=== PATIENT | female | born 1945 | race Caucasian/White ===

== ENCOUNTER 2017-02-11 18:50 | Inpatient (IN) | payer OTHER ==
[~2017-02-11] VITALS: Ht 167.6 cm; Wt 67.6 kg
[2017-02-11 19:03] VITALS: BP 145/65
--- NOTE | 2017-02-11 19:55 | NUR ---
PT BIB EMS FOUND ON THE GROUND AT HOME SINCE 11AM WITH C/O GEN WEAKNESS X 2 DAYS WITH N/V;. PT BDENIES ANY PAIN. AAOX4 AT THIS TIME. EKG DONE. IV 18GA LT A/C DONE BY [facility] WITH NO S/S OF INFULTION AT THIS TIME. FAMILY AT BEDSIDE. SKIN IS INTACT, PALE/WARM/DRY; AAOX4, PERRL, UNSTEADY GAIT S/P W/D; LUNGS CLEAR BL, BREATHING UNLABORED; HR EVEN AND REGULAR, BL PERIPHERAL PULSES PRESENT; BS ACTIVE X4, NO TENDERNESS TO PALPATION. PT DENIES ANY FEVER, CP, SOB, OR COUGH AT THIS TIME; PT STATES 0/10 PAIN AT THIS TIME; PATIENT POSITIONED FOR COMFORT; HOB ELEVATED; BEDRAILS UP X2; BED DOWN.
--- NOTE | 2017-02-11 20:00 | NUR ---
IV 1L NS BOULS STRT-NADR AT THIS TIME
--- NOTE | 2017-02-11 20:15 | NUR ---
LAB AT BEDSIDE, BLOOD AND BLOOD FOR C&S X2 SENT TO LAB.
[2017-02-11 20:19] LABS: BASOPHILS # (AUTO) 0.5 K/uL (0.00-0.22); BASOPHILS % (AUTO) 4.3 % (0.0-2.0); EOSINOPHILS % (AUTO) 0.2 % (0.0-4.0); HEMATOCRIT 38.5 % (36-48); HEMOGLOBIN 12.8 g/dL (12.0-16.0); LYMPHOCYTES # (AUTO) 1.1 K/uL (2.5-16.5); LYMPHOCYTES % (AUTO) 9.1 % (20.5-51.1); MEAN CORPUSCULAR HEMOGLOBIN 27 pg (27-31); MEAN CORPUSCULAR HGB CONC 33 g/dL (33-37); MEAN CORPUSCULAR VOLUME 83 fL (80-94); MONOCYTES # (AUTO) 0.5 K/uL (0.8-1.0); NEUTROPHILS # (AUTO) 9.8 K/uL (1.8-7.7); NEUTROPHILS % (AUTO) 82.4 % (42.2-75.2); PLATELET COUNT (AUTO) 189 K/uL (140-450); RED BLOOD CELL COUNT(AUTO) 4.67 MIL/uL (4.20-5.40); WHITE BLOOD COUNT (AUTO) 11.9 K/uL (4.8-10.8)
[2017-02-11 20:34] LABS: ANION GAP 12.6 (8-16); ASPARTATE AMINOTRANSFERASE 190 U/L (15-37); CARBON DIOXIDE 26.1 mmol/L (21-32); CHLORIDE 103 mmol/L (98-107); CREATININE 1.2 mg/dL (0.6-1.3); GLUCOSE 91 mg/dL (74-106); SODIUM SERUM 139 mmol/L (136-145); TOTAL BILIRUBIN 0.4 mg/dL (0.0-1.0); UREA NITROGEN, BLOOD 13 mg/dL (7-18)
[2017-02-11 20:46] LABS: POTASSIUM 2.7 mmol/L (3.5-5.1)
[2017-02-11] MEDS ORDERED: POTASSIUM CHLORIDE 20% 40 MEQ/15 ML UDC PO ONE (21:00)
[2017-02-11] MEDS ORDERED: NACL 0.9% 1,000 ML IV ONE (21:15)
--- NOTE | 2017-02-11 22:01 | NUR ---
NO ACUTE CHANGES IN CONDITION , PT WITH EYES CLOSED, IN NAD. RESP EVEN AND UNLABORED. VSS 125/45-P-98, 93%ON RA. INFORMED TO TAKE DEEP BREATHS, 97% ON RA. MEDICATED ORDERED.
--- NOTE | 2017-02-11 22:46 | NUR ---
PT AGAIN REMINDED WE NEED URINE SPECIMEN, PLACED ON BEDPAN. DR TEAGUE INFORMED SHE STAYS AT 90%ON RA, AND BP LOW AT 116/47, NO ORDERS RECEIVED. PT REPORTS GENERAL MALAISE AND FEELING SLEEPY.
--- NOTE | 2017-02-11 23:15 | NUR ---
URINE COLLECTED AND SENT TO LAB.
[2017-02-11 23:29] LABS: APPEARANCE,URINE SL CLOUDY (CLEAR); BILIRUBIN,URINE 1+ (NEGATIVE); BLOOD, URINE 3+ (NEGATIVE); COLOR,URINE YELLOW (YELLOW); LEUKOCYTE ESTERASE ,URINE NEGATIVE (NEGATIVE); NITRITE, URINE NEGATIVE (NEGATIVE); UGLUCOSE NEGATIVE (NEGATIVE)
[2017-02-11 23:58] LABS: RBC,URINE TOO NUMEROUS TO COUN /HPF (0-5); WBC,URINE TOO MANY TO COUNT /HPF (0-5)
[2017-02-12] MEDS ORDERED: KCL 20 MEQ/WATER INJ PREMIX 200 ML IV ONE (00:35)
[2017-02-12] MEDS ORDERED: MORPHINE SULFATE 2 MG/ML SYR IVP PRN (00:35)
[2017-02-12] MEDS ORDERED: ONDANSETRON 4 MG/2 ML VIAL IVP PRN (00:35)
--- NOTE | 2017-02-12 01:04 | NUR ---
REPORT RECEIVED FROM DESIRE BONNER CHARGE NURSE.
--- NOTE | 2017-02-12 01:13 | NUR ---
POTASSIUM 20 MEQ NOT GIVEN D/T NOT AVAILABLE IN ER.
[2017-02-12 01:25] VITALS: BP 115/54
--- NOTE | 2017-02-12 01:25 | NUR ---
PATIENT ADMITTED TO THE UNIT FROM ER. PATIENT ARRIVED VIA GURNEY. PATIENT IS AWAKE, ALERT AND ORIENTED. NO SIGNS AND SYMPTOMS OF DISTRESS NOTED. PATIENT ON O2 2L VIA NC. IV SITE NOTED ON LEFT HAND, ASYMPTOMATIC, INTACT AND PATENT. PLAN OF CARE DISCUSSED WITH PATIENT. PATIENT VERBALIZED UNDERSTANDING. BED IN LOWEST POSITION, SIDE RAILS UP AND CALL LIGHT WITHIN REACH. WILL CONTINUE TO MONITOR.
--- NOTE | 2017-02-12 01:35 | NUR ---
Patient will be admitted to [facility]. Admited to Med/Surg. Will go to room 114. Belongings list completed. Report to
[2017-02-12] MEDS: NACL 0.9% 1,000 ML IV SCH ×3 (02:30→16:45)
[2017-02-12] MEDS: ACETAMINOPHEN 325 MG TAB PO PRN ×2 (02:40→16:45)
--- NOTE | 2017-02-12 03:30 | NUR ---
CHECKED ON PATIENT. PATIENT IS ASLEEP. NO SIGNS AND SYMPTOMS OF DISTRESS NOTED. BED IN LOWEST POSITION, SIDE RAILS UP AND CALL LIGHT WITHIN REACH. WILL CONTINUE TO MONITOR.
[2017-02-12] MEDS ORDERED: POTASSIUM CHLORIDE 40 MEQ in NACL 0.9% 250 ML IV SCH (03:35)
[2017-02-12 04:00] VITALS: BP 110/58
--- NOTE | 2017-02-12 05:00 | NUR ---
CHECKED ON PATIENT. PATIENT IS ASLEEP. NO SIGNS AND SYMPTOMS OF DISTRESS NOTED. BREATHING EVEN AND UNLABORED. BED IN LOWEST POSITION, SIDE RAILS UP AND CALL LIGHT WITHIN REACH WILL CONTINUE TO MONITOR.
[2017-02-12 06:49] LABS: BASOPHILS % (AUTO) 0.3 % (0.0-2.0); EOSINOPHILS # (AUTO) 0.1 K/uL (0-0.4); EOSINOPHILS % (AUTO) 0.6 % (0.0-4.0); HEMATOCRIT 33.9 % (36-48); LYMPHOCYTES # (AUTO) 1.4 K/uL (2.5-16.5); LYMPHOCYTES % (AUTO) 13.3 % (20.5-51.1); MEAN CORPUSCULAR HEMOGLOBIN 27 pg (27-31); MEAN CORPUSCULAR HGB CONC 32 g/dL (33-37); MEAN CORPUSCULAR VOLUME 85 fL (80-94); MONOCYTES # (AUTO) 0.9 K/uL (0.8-1.0); MONOCYTES % (AUTO) 8.5 % (1.7-9.3); NEUTROPHILS # (AUTO) 8.2 K/uL (1.8-7.7); NEUTROPHILS % (AUTO) 77.3 % (42.2-75.2); PLATELET COUNT (AUTO) 171 K/uL (140-450); RED BLOOD CELL COUNT(AUTO) 4.02 MIL/uL (4.20-5.40); RED CELL DISTRIBUTION WIDTH 16.1 % (11.6-13.7); WHITE BLOOD COUNT (AUTO) 10.6 K/uL (4.8-10.8)
[2017-02-12 07:00] LABS: ALBUMIN 2.4 g/dL (3.4-5.0); ANION GAP 11.2 (8-16); ASPARTATE AMINOTRANSFERASE 186 U/L (15-37); CARBON DIOXIDE 24.6 mmol/L (21-32); CHLORIDE 108 mmol/L (98-107); CREATININE 1.3 mg/dL (0.6-1.3); GLUCOSE 79 mg/dL (74-106); MAGNESIUM 1.7 mg/dL (1.8-2.4); PHOSPHORUS 4.6 mg/dL (2.5-4.9); POTASSIUM 3.8 mmol/L (3.5-5.1); SODIUM SERUM 140 mmol/L (136-145); TOTAL BILIRUBIN 0.3 mg/dL (0.0-1.0); UREA NITROGEN, BLOOD 17 mg/dL (7-18)
--- NOTE | 2017-02-12 07:19 | NUR ---
PATIENT REPORT GIVEN TO MORNING NURSE AT BEDSIDE. PATIENT IS IN STABLE CONDITION
--- NOTE | 2017-02-12 07:30 | NUR ---
RECEIVED BEDSIDE REPORT FROM WAVE SOLDER OFFBEARER NURSE. PATIENT IS AWAKE, ALERT AND ORIENTEDX4. NO SIGNS AND SYMPTOMS OF DISTRESS NOTED. PATIENT ON O2 2L VIA NC. IV SITE NOTED ON LEFT HAND, 22G, ASYMPTOMATIC, INTACT AND PATENT. PLAN OF CARE DISCUSSED WITH PATIENT. PATIENT VERBALIZED UNDERSTANDING. BED IN LOWEST POSITION, SIDE RAILS UP AND CALL LIGHT WITHIN REACH. WILL CONTINUE TO MONITOR.
[2017-02-12 08:00] VITALS: BP 129/56
[2017-02-12] MEDS ORDERED: metroNIDAZOLE 500 MG/NS PREMIX 100 ML IV SCH (08:35)
[2017-02-12] MEDS ORDERED: metroNIDAZOLE 500 MG/NS PREMIX 100 ML IV ONE (09:00)
--- NOTE | 2017-02-12 09:14 | NUR ---
PATIENT HAS BEEN SCREENED AND CATEGORIZED MODERATE NUTRITION RISK. PATIENT WILL BE SEEN WITHIN 3-5 DAYS OF ADMISSION. 02/14/17-02/16/[address]
--- NOTE | 2017-02-12 10:00 | NUR ---
PT HAD DIARRHEA X1. STOOL SAMPLE COLLECTED.
[2017-02-12] MEDS: ENOXAPARIN 40 MG/0.4 ML SYR SUBQ SCH (10:03)
--- NOTE | 2017-02-12 10:35 | NUR ---
PT WALKED WITH PT WITH A WALKER. O2 SAT BEFORE WALKING 96% ON RM AIR. AFTER WALKING 87% ON RM AIR. PUT O2 2L VIA NC BACK ON.
--- NOTE | 2017-02-12 10:56 | NUR ---
CM NOTE PER BALANCE RECESSER KEZIA, REVIEWS SHOULD ONLY BE SENT TO [facility]. INITIAL REVIEW FAXED TO [facility] [phone] DARCIE # [phone].
[2017-02-12] MEDS: metroNIDAZOLE 500 MG/NS PREMIX 100 ML IV SCH ×2 (14:48→20:41)
--- NOTE | 2017-02-12 15:30 | NUR ---
LAB CALLED SAYING STOOL IS ONLY ENOUGH FOR WBC AND C-DIFF. WILL COLLECT MORE STOOL IF PT HAS MORE DIARRHEA.
[2017-02-12 16:00] VITALS: BP 128/60
--- NOTE | 2017-02-12 16:00 | NUR ---
PT TEMP ELEVATED TO 100.4, WILL ADMINISTER TYLENOL
--- NOTE | 2017-02-12 17:00 | NUR ---
TEMP 100.4, PT C/O OF CHILLS REPORTED TO DR COTO. DR COTO STATED GIVING TYLENOL AND WAITING OF CT SCAN AND STOOL AND URINE RESULT.
[2017-02-12 18:26] LABS: APPEARANCE,URINE CLEAR (CLEAR); BILIRUBIN,URINE 2+ (NEGATIVE); BLOOD, URINE 2+ (NEGATIVE); COLOR,URINE YELLOW (YELLOW); LEUKOCYTE ESTERASE ,URINE NEGATIVE (NEGATIVE); NITRITE, URINE NEGATIVE (NEGATIVE); PH,URINE 5.5 (5.0-9.0); UGLUCOSE NEGATIVE (NEGATIVE)
[2017-02-12 18:52] LABS: RBC,URINE 80-100 /HPF (0-5); WBC,URINE 20-60 /HPF (0-5)
--- NOTE | 2017-02-12 19:35 | NUR ---
PATIENT REPORT GIVEN TO SERVICE DESK TEAM LEAD NURSE AT BEDSIDE. PATIENT IS IN STABLE CONDITION. TEMP 98.6.
--- NOTE | 2017-02-12 19:36 | NUR ---
PATIENT REPORT RECEIVED FROM MORNING NURSE. PATIENT AWAKE, ALERT, AND ORIENTED. PATIENT'S IS AT BEDSIDE. NO SIGNS AND SYMPTOMS OF DISTRESS NOTED, NO COMPLAINTS OF PAIN AT THIS TIME. PATIENT IS ON O2 2L NC. IV SITE NOTED ON LEFT HAND, IV SITE ASYMPTOMATIC, INTACT AND PATENT. PLAN OF CARED DISCUSSED WITH PATIENT. PATIENT VERBALIZED UNDERSTANDING. BED IN LOWEST POSITION, SIDE RAILS UP AND CALL LIGHT WITHIN REACH. WILL CONTINUE TO MONITOR.
[2017-02-12] MEDS ORDERED: INFLUENZA VIRUS VACCINE QUAD 0.5 ML SYR IMVAC PRN (23:20)
[2017-02-12] MEDS ORDERED: PNEUMOCOCCAL VACCINE 23 MCG/0.5 ML VIAL IMVAC PRN (23:20)
[2017-02-13] VITALS: BP 123/59
[2017-02-13] MEDS: metroNIDAZOLE 500 MG/NS PREMIX 100 ML IV SCH (05:03)
[2017-02-13] MEDS: NACL 0.9% 1,000 ML IV SCH (05:48)
--- NOTE | 2017-02-13 07:29 | NUR ---
PATIENT REPORT GIVEN TO MORNING NURSE. PATIENT IS IN STABLE CONDITION
--- NOTE | 2017-02-13 07:30 | NUR ---
RECEIVED PT IN BED. AWAKE. ALERT ORIENTED X4. NO SOB NOTED. DENIES ANY PAIN OR DISCOMFORT AT THIS TIME. PT ON BEDREST. SAFETY PRECAUTION IN PLACE. CALL LIGHT WITHIN REACH.
[2017-02-13 08:00] VITALS: BP 164/68
--- NOTE | 2017-02-13 08:19 | NUR ---
DR. COTO CAME TO SEE PT AND MADE AWARE OF LATEST RECORDED VITAL SIGNS.
[2017-02-13] MEDS ORDERED: ACET-1182 PO (08:55)
[2017-02-13] MEDS ORDERED: SULF-59 PO (08:55)
[2017-02-13] MEDS: ENOXAPARIN 40 MG/0.4 ML SYR SUBQ SCH (09:01)
--- NOTE | 2017-02-13 11:53 | NUR ---
GRANDDAUGHTER TITO AT BEDSIDE. DISCHARGE INSTRUCTIONS AND PT TEACHING EXPLAINED TO PT. PT VERBALIZED UNDERSTANDING. REMINDED TO FOLLOW UP WITH PCP WITHIN 7 DAYS. FLU VACCINE AND PNA VACCINE GIVEN IM. TOLERATED WELL. IV CANNULA REMOVED AND INTACT. NO SOB NOTED. DENIES ANY PAIN OR DISCOMFORT AT THIS TIME. PHYSICAL THERAPIST CAME TO SEE PT. Addendum: 02/13/17 at 1212 by Alicia Chavez RN PT SIGNED DISCHARGE PAPERS. VERBALIZED UNDERSTANDING OF THE HEALTH TEACHINGS AND INSTRUCTIONS.
[2017-02-13 11:55] VITALS: BP 130/60
--- NOTE | 2017-02-13 12:00 | NUR ---
PHYSICAL THERAPIST CAME BACK WITH PT. NO SOB NOTED. DENIES ANY PAIN OR DISCOMFORT AT THIS TIME.
--- NOTE | 2017-02-13 12:20 | NUR ---
PT WHEELED ASSISTED BY ERICK GOING TO THE HOSPITAL PARKING LOT WITH GRANDDAUGHTER TITO TO THEIR PRIVATE VEHICLE. NO SOB NOTED. DENIES ANY PAIN OR DISCOMFORT AT THIS TIME. NAME ARMBAND REMOVED. PT DISCHARGED ON STABLE CONDITION.
== END 2017-02-13 12:20 | disposition home or self-care (01) | DRG 392 ==
LOC: MED 18:50 → MTU 02-12 00:36
PROVIDERS: ADMIT Hospitalist; ATTEND Hospitalist
PROC: 3E0234Z Introduction of Serum, Toxoid and Vaccine into Muscle, Percutaneous Approach (ICD-10-PCS; principal; 2017-02-12)
PROC: 3E0234Z Introduction of Serum, Toxoid and Vaccine into Muscle, Percutaneous Approach (ICD-10-PCS; 2017-02-12)
DX: K52.9 Noninfective gastroenteritis and colitis, unspecified (principal); E44.1 Mild protein-calorie malnutrition; E87.6 Hypokalemia; Z68.24 Body mass index [BMI] 24.0-24.9, adult; Z23 Encounter for immunization
CPT/HCPCS: 36415; 71010; 71250; 80053; 81001; 83605; 83735; 84100; 85025; 87040; 87070; 87081; 87086; 89055; 90658; 90732; 97110; 97116; 97530; 99285; J1650; J3480; J3490; J7030; Q0092

== ENCOUNTER 2017-09-22 21:05 | Emergency (ER) | payer OTHER ==
[~2017-09-22] VITALS: Ht 154.9 cm; Wt 78.0 kg
[~2017-09-22 21:05] MED LIST: ACET-1182 PO; SULF-59 PO
[2017-09-22 21:18] VITALS: BP 186/81
--- NOTE | 2017-09-22 21:18 | NUR ---
PATIENT TRIAGED; VSS; SENT TO ER LOBBY.
--- NOTE | 2017-09-22 23:06 | NUR ---
PT TAKEN TO BED 8
--- NOTE | 2017-09-22 23:06 | NUR ---
PT STATES WALKING OUT OF [facility] IN PARKING LOT AND TRIPPED OVER SPEEDBUM CAUSEING 2.5" LAC TO RIGHT KNEE. 07/25 PAIN. BLEEDING CONTROLLED. VSS. ER MD AWARE. CONTINUE TO MONITOR.
--- NOTE | 2017-09-22 23:08 | NUR ---
PER RN YUDITH ORDER, PT BANDAGE REAPPLIED DUE TO HEAVY SATURATION, BLEEDING CONTROLLED. GAUZE APPLIED OVER WOUND AND HELD IN PLACE WITH CLOTH TAPE. +DISTAL CSM
--- NOTE | 2017-09-22 23:15 | NUR ---
XYLOCAIN 15 50MG/5ML; X2 VAILS TAKEN FROM [facility].
--- NOTE | 2017-09-22 23:15 | NUR ---
XYLOCAINE ADMINISTERED BY DR GAO.
[2017-09-23] MEDS ORDERED: BACITRACIN OINT 500 UNITS/GM PKT TP ONE (00:50)
--- NOTE | 2017-09-23 00:57 | NUR ---
Patient noted to have existing wounds upon arrival to ER. Wound covered with dressing. Physician informed. BY ER MD DR GAO
[2017-09-23 01:06] VITALS: BP 157/79
--- NOTE | 2017-09-23 01:08 | NUR ---
Patient discharged with v/s stable. Written and verbal after care instructions given and explained. Patient alert, oriented and verbalized understanding of instructions. Ambulatory with steady gait. All questions addressed prior to discharge. ID band removed. Patient advised to follow up with PMD. NO Rx of given. Patient educated on indication of medication including possible reaction and side effects. Opportunity to ask questions provided and answered.
[2017-09-23] MEDS ORDERED: LIDOCAINE 2% 1000 MG/50 ML VIAL INJ ONE (01:30)
[2017-09-23] MEDS ORDERED: LIDOCAINE MPF 1% - 5 mL VIAL 10 ML ONE (01:40)
== END 2017-09-23 01:08 | disposition home or self-care (01) ==
LOC: MED 21:05
DX: S81.011A Laceration without foreign body, right knee, initial encounter (principal); Z79.1 Long term (current) use of non-steroidal anti-inflammatories (NSAID); W01.0XXA Fall on same level from slipping, tripping and stumbling without subsequent striking against object, initial encounter; Y93.89 Activity, other specified; Y92.89 Other specified places as the place of occurrence of the external cause; Y99.8 Other external cause status
CPT/HCPCS: 12001; 99283; J2001

== ENCOUNTER 2017-09-30 07:17 | Emergency (ER) | payer OTHER ==
[~2017-09-30] VITALS: Ht 157.5 cm; Wt 72.1 kg
[2017-09-30 07:22] VITALS: BP 143/88
--- NOTE | 2017-09-30 07:27 | NUR ---
PT AMBULATED TO ER BED 02
--- NOTE | 2017-09-30 07:30 | NUR ---
72/F PRESENT TO ER C/O SUTURE REMOVAL ON RIGHT KNEE. wound c/d/i. PATIENT STATES PAIN OF 0/10 AT THIS TIME. PATIENT POSITIONED FOR COMFORT; HOB ELEVATED; BEDRAILS UP X2; BED DOWN. ER MD MADE AWARE OF PT STATUS.
--- NOTE | 2017-09-30 07:44 | NUR ---
Patient being evaluated by DR WARREN at bedside. Addendum: 09/30/17 at 0744 by MED1 NO REMOVE SUTURE AT THIS TIME.
--- NOTE | 2017-09-30 07:58 | NUR ---
Patient discharged with v/s stable. Written and verbal after care instructions given and explained. Patient verbalized understanding. Ambulatory with steady gait. All questions addressed prior to discharge. Advised to follow up with PMD.
[2017-09-30 08:16] VITALS: BP 143/88
== END 2017-09-30 07:58 | disposition home or self-care (01) ==
LOC: MED 07:17
DX: S81.011D Laceration without foreign body, right knee, subsequent encounter (principal); W01.10XD Fall on same level from slipping, tripping and stumbling with subsequent striking against unspecified object, subsequent encounter; Z79.1 Long term (current) use of non-steroidal anti-inflammatories (NSAID)
CPT/HCPCS: 99281

== ENCOUNTER 2019-04-13 13:50 | Observation (INO) | payer OTHER ==
[~2019-04-13] VITALS: Ht 157.5 cm; Wt 70.8 kg
--- NOTE | 2019-04-13 13:50 | NUR ---
Patient BIBA ALS, transferred to bed 11. RN evaluating patient at bedside.
[2019-04-13 13:57] VITALS: BP 164/77
--- NOTE | 2019-04-13 14:00 | NUR ---
BIBA FROM HOME C/O PRESSURE-LIKE STERNAL CHEST PAIN RADIATING TO POSTERIOR NECK AND SOB X 30 MINS ASPHALT HEATER OPERATOR. PT DENIES ANY FEVER, CP, OR COUGH AT THIS TIME; PATIENT STATES PAIN OF 9/10 AT THIS TIME; VSS; PATIENT POSITIONED FOR COMFORT; HOB ELEVATED; BEDRAILS UP X1; BED DOWN. ER MD MADE AWARE OF PT STATUS. FAMILY MEMBERS ARE AT BEDSIDE.
[2019-04-13] MEDS ORDERED: NACL 0.9% 1,000 ML IV ONE (14:39)
[2019-04-13] MEDS ORDERED: MORPHINE SULFATE 4 MG/ML SYR IVP ONE (14:40)
[2019-04-13] MEDS ORDERED: AMPICILLIN/SULBACTAM 3 GM in NACL 0.9% 100 ML IV ONE (14:40)
--- NOTE | 2019-04-13 15:00 | NUR ---
PT IS NOT ABLE TO GIVE SPUTUM AT THIS TIME. RT PETER NOTIFED FOR SPUTUM COLLECTION OF SPUTUM NEEDED.
[2019-04-13] MEDS ORDERED: AMPICILLIN/SULBACTAM 3 GM VIAL ONE (15:06)
[2019-04-13 15:49] LABS: ALBUMIN 2.7 g/dL (3.4-5.0); ANION GAP 11.4 (8-16); ASPARTATE AMINOTRANSFERASE 19 U/L (15-37); CARBON DIOXIDE 25.1 mmol/L (21-32); CHLORIDE 100 mmol/L (98-107); CREATININE 0.9 mg/dL (0.6-1.3); GLUCOSE 106 mg/dL (74-106); POTASSIUM 3.5 mmol/L (3.5-5.1); SODIUM SERUM 133 mmol/L (136-145); TOTAL BILIRUBIN 0.3 mg/dL (0.0-1.0); UREA NITROGEN, BLOOD 15 mg/dL (7-18)
--- NOTE | 2019-04-13 16:25 | NUR ---
PT TAKEN FROM CT SCAN VIA [facility].
[2019-04-13 16:45] LABS: BASOPHILS % (AUTO) 0.5 % (0.0-2.0); EOSINOPHILS # (AUTO) 0.1 K/uL (0-0.4); EOSINOPHILS % (AUTO) 0.7 % (0.0-4.0); HEMATOCRIT 29.3 % (36-48); HEMOGLOBIN 10.1 g/dL (12.0-16.0); LYMPHOCYTES # (AUTO) 1.1 K/uL (2.5-16.5); LYMPHOCYTES % (AUTO) 12.1 % (20.5-51.1); MEAN CORPUSCULAR HEMOGLOBIN 27 pg (27-31); MEAN CORPUSCULAR HGB CONC 35 g/dL (33-37); MEAN CORPUSCULAR VOLUME 76.4 fL (80-94); MONOCYTES % (AUTO) 10.2 % (1.7-9.3); NEUTROPHILS # (AUTO) 7.3 K/uL (1.8-7.7); NEUTROPHILS % (AUTO) 76.5 % (42.2-75.2); PLATELET COUNT (AUTO) 259 K/uL (140-450); RED BLOOD CELL COUNT(AUTO) 3.83 MIL/uL (4.20-5.40); RED CELL DISTRIBUTION WIDTH 17.6 % (11.6-13.7); WHITE BLOOD COUNT (AUTO) 9.5 K/uL (4.8-10.8)
[2019-04-13 16:52] LABS: APPEARANCE,URINE CLEAR (CLEAR); BILIRUBIN,URINE NEGATIVE (NEGATIVE); BLOOD, URINE NEGATIVE (NEGATIVE); COLOR,URINE YELLOW (YELLOW); LEUKOCYTE ESTERASE ,URINE NEGATIVE (NEGATIVE); NITRITE, URINE NEGATIVE (NEGATIVE); UGLUCOSE NEGATIVE (NEGATIVE)
--- NOTE | 2019-04-13 17:05 | NUR ---
PT IS RESTING IN BED WITH VSS. PT IS ON MONITOR.
[2019-04-13] MEDS ORDERED: GABA100C PO (18:23)
[2019-04-13] MEDS ORDERED: MELO-176 PO (18:23)
[2019-04-13] MEDS ORDERED: LORazepam 2 MG/ML VIAL IVP PRN (18:55)
[2019-04-13] MEDS ORDERED: ALBUTEROL 0.083% 2.5 MG/3 ML NEBU INH PRN (18:55)
[2019-04-13] MEDS ORDERED: ACETAMINOPHEN 325 MG TAB PO PRN (18:55)
[2019-04-13] MEDS ORDERED: HYDROcodone/APAP 5/325 MG 1 TAB TAB PO PRN (18:55)
[2019-04-13] MEDS ORDERED: ONDANSETRON 4 MG/2 ML VIAL IVP PRN (18:55)
[2019-04-13] MEDS ORDERED: VANCOMYCIN PER PHARMACY MC PRN (19:00)
--- NOTE | 2019-04-13 19:20 | NUR ---
REPORT GIVEN TO DESIRE KELLER. TRANSFER OF CARE AT THIS TIME.
--- NOTE | 2019-04-13 19:22 | NUR ---
Marlon eddy in [facility] - 04/13/19 at 1928 by NOÉ RECEIVED REPORT DESIRE WAGNER AND ASSUMED CARE.
--- NOTE | 2019-04-13 19:45 | NUR ---
ADMITTED 73 YEARS OLD FEMALE FROM ER/HOME VIA [facility], CC: CP, GEN. WEAKNESS. DX: VENOUS INSUFF. SEE NURSING ADMISSION ASSESSMENT AND HISTORY. ORIENTED TO ROOM AND UNIT ROUTINES. CALL LIGHT WITHIN REACH. VITAL SIGNS STABLE. AFEBRILE.
--- NOTE | 2019-04-13 19:53 | NUR ---
Patient will be admitted to care of DR COTO. Admited to [facility]. Will go to room 101A. Belongings list completed. Report to DESIRE PETERSEN.
[2019-04-13] MEDS ORDERED: VANCOMYCIN 1GM/DEXT 5% PREMIX 200 ML IV SCH (20:15)
[2019-04-13] MEDS ORDERED: BUMETANIDE 1 MG/4 ML VIAL IV SCH (21:00)
[2019-04-13] MEDS ORDERED: VANCOMYCIN 1,000 MG VIAL ONE (21:16)
--- NOTE | 2019-04-13 22:00 | NUR ---
ASLEEP, EASILY AROUSABLE. REPOSITIONED. DUE MEDS GIVEN. CALL LIGHT WITHIN REACH.
--- NOTE | 2019-04-14 | NUR ---
T-100.5, TYLENOL GIVEN PLUS COOLING MEASURES. CALL LIGHT WITHIN REACH.
[2019-04-14 01:41] VITALS: BP 135/61
--- NOTE | 2019-04-14 02:00 | NUR ---
PERICARE DONE, REPOSITIONED BY HOG COUNTER. CALL LIGHT WITHIN REACH.
--- NOTE | 2019-04-14 04:00 | NUR ---
AFEBRILE. VITAL SIGNS STABLE. NO COMPLAINS. PERICARE DONE BY HOUSEHOLD APPLIANCE INSTALLER. REPOSITIONED. CALL LIGHT WITHIN REACH.
[2019-04-14 04:57] VITALS: BP 137/57
--- NOTE | 2019-04-14 06:56 | NUR ---
SLEEPING WELL, EASILY AROUSABLE. NO COMPLAINS. CALL LIGHT WITHIN REACH.
[2019-04-14 07:07] LABS: BASOPHILS # (AUTO) 0.1 K/uL (0.00-0.22); BASOPHILS % (AUTO) 0.6 % (0.0-2.0); EOSINOPHILS # (AUTO) 0.1 K/uL (0-0.4); EOSINOPHILS % (AUTO) 1.4 % (0.0-4.0); HEMATOCRIT 27.8 % (36-48); HEMOGLOBIN 9.6 g/dL (12.0-16.0); LYMPHOCYTES % (AUTO) 10.4 % (20.5-51.1); MEAN CORPUSCULAR HEMOGLOBIN 27 pg (27-31); MEAN CORPUSCULAR HGB CONC 35 g/dL (33-37); MEAN CORPUSCULAR VOLUME 76.8 fL (80-94); MONOCYTES # (AUTO) 0.9 K/uL (0.8-1.0); NEUTROPHILS # (AUTO) 7.5 K/uL (1.8-7.7); NEUTROPHILS % (AUTO) 78.6 % (42.2-75.2); PLATELET COUNT (AUTO) 257 K/uL (140-450); RED BLOOD CELL COUNT(AUTO) 3.62 MIL/uL (4.20-5.40); RED CELL DISTRIBUTION WIDTH 17.8 % (11.6-13.7); WHITE BLOOD COUNT (AUTO) 9.6 K/uL (4.8-10.8)
--- NOTE | 2019-04-14 07:15 | NUR ---
RECEIVED BEDSIDE REPORT FROM CRUSHING FOREMAN NURSE TRINITY. PT IS ASLEEP, NO S/S OF DISTRESS NOTED. SKIN INTACT ASIDE FROM SKIN PEELING ON THE BLE'S. PT IS CURRENTLY ON 3L O2 NC. IV SITE L AC 20 G, SALINE LOCKED. FALL PRECAUTIONS IN PLACE. CALL LIGHT IS WITHIN REACH. PT IS AN OBSERVATION PT. WILL CONTINUE TO MONITOR.
--- NOTE | 2019-04-14 07:23 | NUR ---
ENDORSED CARE AT BEDSIDE WITH MILLICENT PHIPPS, PATIENT IN STABLE CONDITION.
[2019-04-14 07:46] LABS: ALBUMIN 2.2 g/dL (3.4-5.0); ANION GAP 14.4 (8-16); ASPARTATE AMINOTRANSFERASE 31 U/L (15-37); CARBON DIOXIDE 22.9 mmol/L (21-32); CHLORIDE 101 mmol/L (98-107); CREATININE 0.9 mg/dL (0.6-1.3); GLUCOSE 77 mg/dL (74-106); POTASSIUM 3.3 mmol/L (3.5-5.1); SODIUM SERUM 135 mmol/L (136-145); TOTAL BILIRUBIN 0.4 mg/dL (0.0-1.0); UREA NITROGEN, BLOOD 12 mg/dL (7-18)
[2019-04-14 08:00] VITALS: BP 121/55
--- NOTE | 2019-04-14 08:00 | NUR ---
PT SEEN BY DR COTO
--- NOTE | 2019-04-14 08:12 | NUR ---
PATIENT HAS BEEN SCREENED AND CATEGORIZED MODERATE NUTRITION RISK. PATIENT WILL BE SEEN WITHIN 3-5 DAYS OF ADMISSION. 04/16/19 04/18/[address]
[2019-04-14] MEDS ORDERED: MAG SULF 2000 MG/WATER PREMIX 50 ML IV PRN (08:35)
[2019-04-14] MEDS ORDERED: KCL 20 MEQ/WATER INJ PREMIX 200 ML IV PRN (08:35)
[2019-04-14] MEDS ORDERED: GABAPENTIN 100 MG CAP PO SCH (09:00)
[2019-04-14] MEDS: FUROSEMIDE 40 MG/4 ML VIAL IVP SCH ×2 (09:12→16:37)
--- NOTE | 2019-04-14 09:20 | NUR ---
AM MEDS ADMINISTERED, PT TOLERATED WELL. PRN K-RIDER 20 MEQ IVF GIVEN FOR POTASSIUM OF 3.3. IS AT BEDSIDE.
--- NOTE | 2019-04-14 09:29 | NUR ---
PT IS HAVING AN ECHO AT THIS TIME.
--- NOTE | 2019-04-14 09:34 | NUR ---
CALLED LAB TO COME DRAW PT'S TROPONIN STAT, PER DR COTO'S ORDER. Addendum: 04/14/19 at 1156 by Gloria Oh RN TROPONIN NEGATIVE
[2019-04-14] MEDS: HYDROcodone/APAP 5/325 MG 1 TAB TAB PO PRN ×2 (10:35→16:37)
--- NOTE | 2019-04-14 11:56 | NUR ---
PT'S TWO DAUGHTERS ARE VISITING AT BEDSIDE. PT IN NO ACUTE DISTRESS. VITAL SIGNS ARE STABLE.
[2019-04-14 12:00] VITALS: BP 118/55
--- NOTE | 2019-04-14 12:54 | NUR ---
PT EATING LUNCH WITH ASSISTANCE FROM GRANDDAUGHTER. K-RIDER HAS FINISHED INFUSING.
--- NOTE | 2019-04-14 14:33 | NUR ---
PT WORKING WITH PHYSICAL THERAPIST AT THIS TIME
[2019-04-14 16:00] VITALS: BP 131/59
--- NOTE | 2019-04-14 16:38 | NUR ---
DISCHARGE PLANNING 73 y/o female admitted under observation for venous insufficiency. Received order for services for PT and safety eval. Sw met with pt and at the bedside. Pt reported she lives at home with . Pt uses a walker at home and stated that prior to this episode of sickness she was fully independent. stated he's been helping pt with ADLs for the last 4-5 days. Pt reported she's never been to a SNF and she would prefer to go home with her family. Sw contacted [facility] [phone] ext [phone] who requested to have the order and face sheet faxed to [phone]. Orders faxed; possible DC Wednesday. After hours number is [phone]. DARIAN Mcdonald/TONI Ext [phone] Addendum: 04/15/19 at 1056 by Ervin Arias SW followed up with [facility] TONI [place] [phone]. Per Valencia, taxation economist staff will contact to follow up on Home Health for PT for patient. Valencia provided reference number #[id number] and stated that would call SW back shortly. KAITLYN will continue to follow up. Addendum: 04/15/19 at 1101 by Ervin Arias KAITLYN received phone call from TONI Em from [facility]. Maria Antonia stated that fax was received and she will call back with authorization number after information is reviewed. KAITLYN will continue to follow up. Addendum: 04/15/19 at 1246 by Ervin Arias KAITLYN received phone call from [facility] TONI Lozano stated that she had arranged home health with [facility] [phone]. Marta stated that the [facility] will reach out to patient after discharge. No further needs identified.
--- NOTE | 2019-04-14 16:50 | NUR ---
SCHEDULED IVP LASIX ADMINISTERED, ALSO ADMINISTERED A PAIN PILL FOR ARTHRITIS PAIN IN THE HANDS. WILL REASSESS WITHIN AN HOUR. IS SITTING AT BEDSIDE.
[2019-04-14] MEDS ORDERED: PANT40EC PO (17:49)
--- NOTE | 2019-04-14 17:53 | NUR ---
PAGED DR MARY JOSEPH TO NOTIFY HIM OF CONSULT ORDERED FOR THE PT, AND TO NOTIFY HIM THAT PT CAN BE DC'D (PER DR COTO) WHEN CLEARED BY CARDIOLOGY. AWAITING CALL BACK. Addendum: 04/14/19 at 1813 by Gloria Oh RN PT'S FAMILY STATES THAT THEY WANT PT TO STAY IN THE HOSPITAL ONE MORE NIGHT. FAMILY STATES THAT THEY TALKED TO STAFF (NOT CLEAR WHICH STAFF) ABOUT ALLOWING PT TO STAY IN THE HOSPITAL ANOTHER NIGHT. WILL MENTION THIS TO DR JOSEPH WHEN HE CONSULTS THE PT. Addendum: 04/14/19 at 1841 by Gloria Oh RN DR JOSEPH CALLED BACK, SAID HE WILL BE COMING IN TONIGHT TO CONSULT PT.
[2019-04-14] MEDS: PANTOPRAZOLE 40 MG TABEC PO SCH (18:02)
--- NOTE | 2019-04-14 19:27 | NUR ---
PT ENDORSED TO REFINISHER NURSE IN STABLE CONDITION
--- NOTE | 2019-04-14 19:28 | NUR ---
RECEIVED REPORT FROM AM SHIFT. PATIENT LYING DOWN IN BED, NO DISTRESS NOTED. FAMILY MEMBERS AT BEDSIDE. PAIN WITHIN TOLERABLE AT THIS TIME. IV SITE INTACT, PATENT, AND INFUSING IVF PER MD ORDERS. RESPIRATIONS EVEN, UNLABORED, ON ROOM O2 2L/MIN. AAOX4, CALM, COOPERATIVE, SKIN COLOR APPROPRIATE TO ETHNICITY, WARM TO TOUCH. BLE REDNESS NOTED, WITH DRY FLAKY SKIN. REVIEWED PLAN OF CARE WITH PATIENT. PATIENT VERBALIZED UNDERSTANDING. SAFETY MEASURES IN PLACE, CALL LIGHT WITHIN REACH. WILL CONTINUE TO MONITOR.
[2019-04-14 20:00] VITALS: BP 132/58
--- NOTE | 2019-04-14 20:07 | NUR ---
DR. JOSEPH AT BEDSIDE REVIEWING PLAN OF CARE WITH PATIENT. WILL CONTINUE TO MONITOR.
--- NOTE | 2019-04-14 21:28 | NUR ---
PATIENT LYING DOWN IN BED SLEEPING, AROUSABLE BY VOICE. NO DISTRESS NOTED. DENIES ANY PAIN. SCHEDULED MEDICATIONS DUE GIVEN. WILL CONTINUE TO MONITOR.
[2019-04-15] VITALS: BP 118/57
--- NOTE | 2019-04-15 02:00 | NUR ---
PATIENT LYING DOWN IN BED SLEEPING, AROUSABLE BY VOICE. NO DISTRESS NOTED. DENIES ANY PAIN. WILL CONTINUE TO MONITOR.
[2019-04-15 04:00] VITALS: BP 138/57
--- NOTE | 2019-04-15 04:50 | NUR ---
PATIENT LYING DOWN IN BED SLEEPING, AROUSABLE BY VOICE. NO DISTRESS NOTED. WILL CONTINUE TO MONITOR.
[2019-04-15 06:06] LABS: BASOPHILS % (AUTO) 0.4 % (0.0-2.0); EOSINOPHILS # (AUTO) 0.2 K/uL (0-0.4); EOSINOPHILS % (AUTO) 2.2 % (0.0-4.0); HEMATOCRIT 28.2 % (36-48); HEMOGLOBIN 9.8 g/dL (12.0-16.0); LYMPHOCYTES % (AUTO) 12.1 % (20.5-51.1); MEAN CORPUSCULAR HEMOGLOBIN 27 pg (27-31); MEAN CORPUSCULAR HGB CONC 35 g/dL (33-37); MEAN CORPUSCULAR VOLUME 76.3 fL (80-94); MONOCYTES # (AUTO) 0.6 K/uL (0.8-1.0); MONOCYTES % (AUTO) 7.5 % (1.7-9.3); NEUTROPHILS # (AUTO) 6.6 K/uL (1.8-7.7); NEUTROPHILS % (AUTO) 77.8 % (42.2-75.2); PLATELET COUNT (AUTO) 277 K/uL (140-450); RED BLOOD CELL COUNT(AUTO) 3.69 MIL/uL (4.20-5.40); RED CELL DISTRIBUTION WIDTH 17.6 % (11.6-13.7); WHITE BLOOD COUNT (AUTO) 8.4 K/uL (4.8-10.8)
--- NOTE | 2019-04-15 07:15 | NUR ---
RECEIVED PT FROM DATACAP DEVELOPER NURSEPATSY, PT IS AWAKE AND SIDE RAILS ARE UP AND CALL LIGHT WITHIN REACH, FALL PRECAUTION INITIATED, IV LINE ON THE LFT AC G. 20 ON SALINE LOCK, PT ON O2 2L NC, NO SIGN OF DISTRESS NOTED, AOX4, FALL RISK AND WILL BE CONTINUED TO BE MONITOR .
[2019-04-15 08:00] VITALS: BP 122/60
[2019-04-15 08:11] LABS: ALBUMIN 2.3 g/dL (3.4-5.0); ANION GAP 14.1 (8-16); ASPARTATE AMINOTRANSFERASE 23 U/L (15-37); CARBON DIOXIDE 26.2 mmol/L (21-32); CHLORIDE 97 mmol/L (98-107); CREATININE 1.1 mg/dL (0.6-1.3); GLUCOSE 83 mg/dL (74-106); POTASSIUM 3.3 mmol/L (3.5-5.1); SODIUM SERUM 134 mmol/L (136-145); TOTAL BILIRUBIN 0.3 mg/dL (0.0-1.0); UREA NITROGEN, BLOOD 15 mg/dL (7-18)
[2019-04-15] MEDS: PANTOPRAZOLE 40 MG TABEC PO SCH (08:20)
[2019-04-15] MEDS: FUROSEMIDE 40 MG/4 ML VIAL IVP SCH (08:20)
--- NOTE | 2019-04-15 08:21 | NUR ---
PT'S AM SCHEDULED MEDICATIONS WERE GIVEN TO PT NOW VIA ORAL, SUBQ AND IV PUSH, AND TOLERATED, PARAMETER CHECKED, BP IS 1`232/60, PLATELET IS 277, WILL MONITOR PT.
--- NOTE | 2019-04-15 10:45 | NUR ---
PT WAS GIVEN MAGNESIUM IV NOW FOR MG LEVEL OF 1.7, WILL MONITOR PT.
[2019-04-15] MEDS ORDERED: POTASSIUM CHLORIDE 10 MEQ TABER PO SCH (10:59)
--- NOTE | 2019-04-15 11:36 | NUR ---
PT WAS GIVEN K-DUR 40MEQ FOR K LEVEL OF 3.3, PT PREFERRED TO TAKE ORAL POTASSIUM SUPPLEMENT RATHER THAN THE IV BECAUSE PT VERBALIZED THAT SHE DOES NOT WANT THE K RIDER BECAUSE IT IS BURNING TO THE SKIN.
[2019-04-15 12:00] VITALS: BP 123/57
--- NOTE | 2019-04-15 13:45 | NUR ---
PT IS SLEEPING NOW WITH ON THE BEDSIDE, NO SIGN OF DISTRESS NOTED.
[2019-04-15 17:00] VITALS: BP 121/50
--- NOTE | 2019-04-15 17:00 | NUR ---
DISCHARGED PT TO HOME WITH FAMILY, DISCHARGED TEACHINGS AND PRESCRIPTION INSTRUCTION WERE GIVEN TO PT PT VERBALIZED UNDERSTANDING. IV LINE AND ARM BAND REMOVED, PT IS STABLE AT THIS TIME.
== END 2019-04-15 17:00 | disposition home or self-care (01) ==
LOC: MED 13:50 → MTU 19:06
PROVIDERS: ADMIT Hospitalist; ATTEND Hospitalist
DX: R07.81 Pleurodynia (principal); R60.9 Edema, unspecified; I31.3 Pericardial effusion (noninflammatory); G62.9 Polyneuropathy, unspecified; M81.0 Age-related osteoporosis without current pathological fracture; I10 Essential (primary) hypertension; E83.42 Hypomagnesemia; E87.6 Hypokalemia; Z79.899 Other long term (current) drug therapy
CPT/HCPCS: 36415; 36600; 71045; 71275; 80053; 81003; 82803; 83605; 83735; 83880; 84484; 85025; 85651; 86140; 87040; 87081; 87086; 93005; 93307; 96365; 96366; 96367; 96372; 96375; 96376; 97112; 97161; 99285; G0378; J0295; J1644; J1940; J2270; J3370; J3475; J3480; J3490; J7030; Q0092; Q9967